=== PATIENT | male | born 1995 | race American Indian/Alaskan Native ===

== ENCOUNTER 2017-10-10 09:26 | Emergency (ER) | payer OTHER ==
[2017-10-10 10:25] VITALS: BP 107/65
--- NOTE | 2017-10-10 10:36 | Emergency Department Report ---
Chief Complaint: Nausea/Vomiting/Diarrhea Stated Complaint: NAUSEA/DIZZINESS Time Seen by Provider: 10/10/17 10:33 - HPI History of Present Illness: Patient c/o having a fever 3 days ago that resolved, followed by non-bloody vomiting and diarrhea since then, along with diffuse abdominal cramping; also admits to dry cough; denies urinary sxs or flu vaccination this year - ROS Review of Systems: Negative except for those stated in HPI - Exam Vital Signs: Vital Signs 10/10/17 10:24 Temperature 98.7 F Pulse Rate 69 Respiratory 16 Rate Blood Pressure 107/65 O2 Sat by Pulse 98 Oximetry Physical Exam: NAD Abdomen - mild TTP over entire abdomen without guarding MSE screening note: Focused history and physical exam performed. Due to findings the following was ordered: labs Patient to be seen by provider in Main ED ED Disposition for MSE Condition: Stable
[2017-10-10 10:59] LABS: Hematocrit 39.3 % (35.5-45.6); Hemoglobin 13.4 gm/dl (11.8-15.2); Mean Corpuscular HGB Conc 34 % (32-34); Mean Corpuscular Hemoglobin 31 pg (28-32); Mean Corpuscular Volume 92 fl (84-94); Platelet Count 246 K/mm3 (140-440); Red Blood Count 4.29 M/mm3 (3.65-5.03); Red Cell Distribution Width 12.6 % (13.2-15.2); White Blood Count 4.8 K/mm3 (4.5-11.0)
[2017-10-10 11:15] LABS: Alanine Aminotransferase 8 units/L (7-56); Albumin 4.1 g/dL (3.9-5); Albumin/Globulin Ratio 1.1 %; Alkaline Phosphatase 58 units/L (35-129); Anion Gap 19 mmol/L; BUN/Creatinine Ratio 7; Blood Urea Nitrogen 6 mg/dL (9-20); Calcium 9.1 mg/dL (8.4-10.2); Carbon Dioxide 24 mmol/L (22-30); Glucose 96 mg/dL (75-100); Lipase 17 units/L (13-60); Potassium 3.8 mmol/L (3.6-5.0); Sodium 142 mmol/L (137-145); Total Protein 7.7 g/dL (6.3-8.2)
== END 2017-10-10 21:35 | disposition left against medical advice (07) ==
LOC: ED 09:26
DX: R11.0 Nausea (principal); R42 Dizziness and giddiness; Z53.21 Procedure and treatment not carried out due to patient leaving prior to being seen by health care provider
CPT/HCPCS: 36415; 80053; 83690; 85027